=== PATIENT | male | born 1955 | race Caucasian/White ===

== ENCOUNTER 2021-12-04 14:30 | Outpatient (REF) | payer OTHER, SELFPAY | END 2021-12-04 14:31 | disposition home or self-care (01) | LOC: HO.BBR 14:30 | PROVIDERS: Visit Provider Internal Medicine | DX: Z13.89 Encounter for screening for other disorder (principal) ==

== ENCOUNTER 2022-05-28 12:59 | Outpatient (REF) | payer OTHER, SELFPAY | END 2022-05-28 13:00 | disposition home or self-care (01) | LOC: HO.BBR 12:59 | PROVIDERS: Visit Provider Internal Medicine | DX: Z13.89 Encounter for screening for other disorder (principal) ==